=== PATIENT | male | born 1965 | race Caucasian/White ===

== ENCOUNTER 2019-12-22 09:27 | Inpatient (IN) | payer OTHER ==
[~2019-12-22] VITALS: Ht 167.6 cm; Wt 93.4 kg
[2019-12-22 09:29] VITALS: Ht 167.6 cm; Wt 93.4 kg
[2019-12-22 10:12] LABS: CALCIUM 8.8 mg/dL (8.5-10.1); CARBON DIOXIDE 26.2 mmol/L (21-32); CHLORIDE SERUM 103 mmol/L (98-107); CREATININE SERUM 0.9 mg/dL (0.7-1.3); GFR1 > 60 mL/min; GLUCOSE SERUM 133 mg/dL (74-106); POTASSIUM SERUM 3.6 mmol/L (3.5-5.1); SODIUM SERUM 140 mmol/L (136-145)
[2019-12-22 10:13] LABS: BASOPHIL % 0.3 % (0-2); PLATELET COUNT 170 x10^3mcL (130-400); RED CELL DISTRIBUTION WIDTH 12.8 % (11.5-14.5)
[2019-12-22 10:16] LABS: ALBUMIN 4.3 g/dL (3.4-5.0); ALKALINE PHOSPHATASE 75 U/L (46-116); ALT/SGPT 55 U/L (16-63); AST/SGOT 28 U/L (15-37); BILIRUBIN TOTAL 0.8 mg/dL (0.20-1.00); TOTAL PROTEIN, SERUM 7.8 g/dL (6.4-8.2)
[2019-12-22 11:02] LABS: AMPHETAMINE QUAL UR NONE DETECTED (See below)
[2019-12-22 14:57] VITALS: BP 120/78
[2019-12-22] MEDS ORDERED: BUSPIRONE HCL15 MG PO (16:35)
[2019-12-22 21:02] VITALS: BP 136/83
[2019-12-23 05:19] VITALS: BP 104/73
[2019-12-23 08:40] VITALS: BP 119/81
[2019-12-23 09:50] LABS: CALCIUM 9.1 mg/dL (8.5-10.1); CARBON DIOXIDE 25.9 mmol/L (21-32); CHLORIDE SERUM 105 mmol/L (98-107); GFR1 > 60 mL/min; GLUCOSE SERUM 95 mg/dL (74-106); SODIUM SERUM 141 mmol/L (136-145)
[2019-12-23 10:29] LABS: BASOPHIL % 0.3 % (0-2); PLATELET COUNT 172 x10^3mcL (130-400); RED CELL DISTRIBUTION WIDTH 12.9 % (11.5-14.5)
[2019-12-23 12:22] VITALS: BP 131/87
[2019-12-23 17:44] VITALS: BP 129/86
[2019-12-23 18:05] VITALS: BP 129/86
[2019-12-23 21:00] VITALS: BP 92/65
== END 2019-12-23 18:45 | disposition home or self-care (01) | DRG 313 ==
LOC: ED 09:27 → DU 12:23
PROVIDERS: Emergency Medicine; ADMIT Student in an Organized Health Care Education/Training Program; ATTEND Student in an Organized Health Care Education/Training Program
DX: R07.89 Other chest pain (principal); F17.200 Nicotine dependence, unspecified, uncomplicated; I10 Essential (primary) hypertension; E11.65 Type 2 diabetes mellitus with hyperglycemia; Z88.0 Allergy status to penicillin; Z82.49 Family history of ischemic heart disease and other diseases of the circulatory system; Z83.3 Family history of diabetes mellitus; Z71.6 Tobacco abuse counseling; F41.9 Anxiety disorder, unspecified
CPT/HCPCS: 83880; 99406; C9113; G0378; Q0092